=== PATIENT | male | born 1965 | race Caucasian/White ===

== ENCOUNTER 2020-02-08 16:52 | Emergency (ER) | payer OTHER ==
[2020-02-08] MEDS ORDERED: SODIUM CHLORIDE 0.9% (FLUSH) 10 ML SYG IV PRN (16:55)
--- NOTE | 2020-02-08 18:01 | ED.PDOC ---
History of Present Illness - General Chief Complaint: Cardiovascular Problem Stated Complaint: A [employer] ACTING UP Time Seen by Provider: 02/08/20 16:55 Source: patient, RN notes reviewed, Vital Signs reviewed Exam Limitations: no limitations - History of Present Illness Initial Comments: Patient is a 54-year-old white male who presents with complaints of shortness of breath and palpitations. Patient was seen by his park guide yesterday who gave him a "clean bill of health". Patient has a history of atrial fibrillation. Patient is supposed to be started on Eliquis, [facility] patient denies any chest pain. Timing/Duration: 1-3 hours Severity: moderate Improving Factors: nothing Worsening Factors: nothing Associated Symptoms: malaise, shortness of breath Allergies/Adverse Reactions: Allergies NO KNOWN ALLERGY Allergy (Verified 02/08/20 17:08) Home Medications: Ambulatory Orders Albuterol Inhaler [Ventolin Hfa Inhaler] 1 puff INH PRN PRN 02/08/20 Aspirin (Buffered) 325 mg [Bufferin 325 mg] 1 ea PO QD 02/08/20 Lovastatin 20 mg PO 02/08/20 Review of Systems - Review of Systems Constitutional: States: see HPI, malaise. Denies: chills, fever, weakness EENTM: States: no symptoms reported. Denies: eye pain, blurred vision, double vision Respiratory: States: see HPI, orthopnea, short of breath. Denies: stridor, wheezing Cardiology: States: see HPI, palpitations. Denies: chest pain, syncope Gastrointestinal/Abdominal: States: no symptoms reported. Denies: abdominal pain, nausea, vomiting Genitourinary: States: no symptoms reported. Denies: dysuria, frequency Musculoskeletal: States: no symptoms reported. Denies: back pain, neck pain Skin: States: no symptoms reported. Denies: change in color, rash Neurological: States: see HPI, weakness. Denies: headache, numbness, paresthesia, tremors Endocrine: States: no symptoms reported Hematologic/Lymphatic: States: no symptoms reported All other Systems: No Change from Baseline Past Medical History (General) - Patient Medical History Hx Seizures: No Hx Stroke: No Hx Dementia: No Hx Asthma: Yes Hx Cardiac Disorders: Yes Hx Congestive Heart Failure: No Hx Pacemaker: No Hx Hypertension: Yes Hx Thyroid Disease: No Hx Diabetes: No Hx Gastroesophageal Reflux: No Hx Renal Disease: No Hx Cancer: No Hx of HIV: No Hx Hepatitis C: No Hx MRSA: No - Vaccination History Hx Tetanus, Diphtheria Vaccination: No Hx Influenza Vaccination: No Hx Pneumococcal Vaccination: No Immunizations Up to Date: No - Social History Hx Tobacco Use: Yes Hx Chewing Tobacco Use: Yes Hx Alcohol Use: Yes - OCC Hx Substance Use: No Hx Substance Use Treatment: No Hx Depression: No Family Medical History - Family History Mother Family History: Unknown Living Status: Physical Exam - Physical Exam General Appearance: Alert, Anxious, Restless, Well Developed, Well Groomed, Well Hydrated, Well Nourished Eye Exam: bilateral normal Ears, Nose, Throat: hearing grossly normal, normal ENT inspection Neck: non-tender, full range of motion, supple Respiratory: chest non-tender, lungs clear, normal breath sounds, no respiratory distress, no accessory muscle use Cardiovascular/Chest: normal peripheral pulses, no edema, no gallop, no murmur, tachycardia, irregularly irregular Peripheral Pulses: radial,right: 2+, radial,left: 2+ Gastrointestinal/Abdominal: normal bowel sounds, non tender, soft Back Exam: normal inspection, no CVA tenderness, no vertebral tenderness Extremity: normal range of motion, non-tender, normal inspection 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 fib with RVR, acute VT, unstable angina, atrial flutter among others. 02/08/20 19:25 Patient's atrial flutter converted to sinus rhythm after Cardizem IV. Patient's chest pain resolved. Labs are essentially negative EKG concerning for ischemia. Patient has been accepted by his cardiology group for transfer to [facility]. Patient was accepted emergency department to emergency department by . Pt is cp free at this time. I discussed this plan of care with the patient he voices understanding and agreement with the plan of care. Luisito Otero M.D. #[id number] - Results/Orders Results/Orders: 02/08/20 16:55 IV Care:Saline Lock per Protoc QSHIFT Telemetry ONCE Sodium Chloride 0.9% (Flush) [Saline Flush Syringe] 3 ml IV PRN PRN Chest,1 View [RAD] Stat URINALYSIS Stat 02/08/20 17:00 EKG STAT 02/09/20 09:00 Pulse Ox Daily Laboratory Results - last 24 hr 02/08/20 17:05 WBC 9.5 RBC 5.22 Hgb 16.4 Hct 47.0 MCV 90.0 MCH 31.4 H MCHC 35.0 RDW 12.6 Plt Count 188 MPV 8.4 Absolute Neuts (auto) 5.20 Absolute Lymphs (auto) 2.60 Absolute Monos (auto) 1.20 H Absolute Eos (auto) 0.40 Absolute Basos (auto) 0.10 Neutrophils % 54.5 Lymphocytes % 27.1 Monocytes % 13.1 H Eosinophils % 4.6 Basophils % 0.7 PT 10.4 INR 1.05 PTT (SP) 24.2 Sodium 142 Potassium 4.0 Chloride 107 Carbon Dioxide 23 Anion Gap 16.0 BUN 18 Creatinine 1.25 BUN/Creatinine Ratio 14.4 Random Glucose 94 Serum Osmolality 284.8 Calcium 9.5 Magnesium 2.1 Total Bilirubin 1.0 Direct Bilirubin 0.1 Indirect Bilirubin 0.9 H AST 35 ALT 46 Alkaline Phosphatase 66 Creatine Kinase 417 H* CK-MB (CK-2) 7.1 H* CK-MB (CK-2) % 1.70 Troponin I 0.02 B-Natriuretic Peptide 89.6 Serum Total Protein 7.8 Albumin 5.3 EKG performed on 08 February 2020 at 1652 hrs.: Atrial flutter with variable AV block with PVCs at 140 bpm, left ventricular hypertrophy with repolarization abnormalities, abnormal EKG. No old comparison EKG available at this time. EKG performed 08 February 2020 at 1818 hrs.: Sinus rhythm with PACs at 81 bpm, left atrial enlargement, left ventricular hypertrophy, ST and T wave abnormalities laterally concerning for ischemia including inverted T waves, abnormal EKG. Vital Signs 02/08/20 02/08/20 02/08/20 16:58 16:59 17:09 Temperature 97.6 F Pulse Rate [ 140 H 134 H MONITOR] Respiratory 20 20 Rate Blood Pressure 143/98 [LA] O2 Sat by Pulse 97 97 Oximetry 02/08/20 02/08/20 02/08/20 17:12 18:00 18:17 Temperature Pulse Rate [ 86 84 90 MONITOR] Respiratory 18 18 Rate Blood Pressure 143/104 136/95 [LA] O2 Sat by Pulse 94 L Oximetry 02/08/20 19:08 Temperature 97.2 F L Pulse Rate [ 68 MONITOR] Respiratory 18 Rate Blood Pressure 140/99 [LA] O2 Sat by Pulse 100 Oximetry EXAM: XR Chest, 1 View CLINICAL HISTORY: The patient is 54 years old and is Male; dyspnea TECHNIQUE: Single view of the chest. COMPARISON: No relevant prior studies available. FINDINGS: Lungs: Unremarkable. No consolidation. Pleural space: Unremarkable. No pneumothorax. Heart: Unremarkable. No cardiomegaly. Mediastinum: Unremarkable. Bones/joints: No acute fracture visualized. Upper abdomen: No free air in the visualized upper abdomen. IMPRESSION: No acute cardiopulmonary process identified. Electronically signed by: Kathe Block MD 02/08/2020 7:28 - EKG/XRAY/CT CT Ordered: No CT Interpretation Call Back: No Departure - Departure Clinical Impression: Atrial flutter with rapid ventricular response, Abnormal EKG Chest pain Qualifiers: Chest pain type: unspecified Qualified Code(s): R07.9 - Chest pain, unspecified Time of Disposition: 19:29 Disposition: Transfer to Hospital Condition: Good Departure Forms: ED Discharge - Pt. Copy, Patient Portal Self Enrollment Instructions: DI for Chest Pain Diet: low fat, low cholesterol Activity: increase activity as tolerated Referrals: Scott Goff MD [Primary Care Provider] - 1-2 Weeks Home Medications: Ambulatory Orders Albuterol Inhaler [Ventolin Hfa Inhaler] 1 puff INH PRN PRN 02/08/20 Aspirin (Buffered) 325 mg [Bufferin 325 mg] 1 ea PO QD 02/08/20 Lovastatin 20 mg PO 02/08/20 Transfer to Outside Facility - Transfer Information Decision to Transfer Date: 02/08/20 Decision to Transfer Time: 18:45 Reason for Transfer: required specialist not available Accepting Provider:: Dr. Howard Accepting Facility: [facility]
[2020-02-08 19:09] VITALS: TEMP 97.2; O2SAT 100
--- NOTE | 2020-02-08 19:29 | RAD ---
EXAM: XR Chest, 1 View CLINICAL HISTORY: The patient is 54 years old and is Male; dyspnea TECHNIQUE: Single view of the chest. COMPARISON: No relevant prior studies available. FINDINGS: Lungs: Unremarkable. No consolidation. Pleural space: Unremarkable. No pneumothorax. Heart: Unremarkable. No cardiomegaly. Mediastinum: Unremarkable. Bones/joints: No acute fracture visualized. Upper abdomen: No free air in the visualized upper abdomen. IMPRESSION: No acute cardiopulmonary process identified. Electronically signed by: Kathe Block MD 02/08/2020 7:28 PM CDT
[2020-02-08] MEDS ORDERED: ENOXAPARIN SODIUM 100 MG/ML SYG SUBCU ONE (19:43)
[2020-02-08] MEDS ORDERED: ENOXAPARIN SODIUM 30 MG/0.3 ML SYG SUBCU ONE (19:43)
[2020-02-08 21:17] VITALS: BP 139/98
== END 2020-02-08 20:51 | disposition short-term general hospital (02) ==
LOC: ER 16:52
DX: I48.92 Unspecified atrial flutter (principal); R00.0 Tachycardia, unspecified; R94.31 Abnormal electrocardiogram [ECG] [EKG]; R07.9 Chest pain, unspecified; R06.02 Shortness of breath; I48.91 Unspecified atrial fibrillation; J45.909 Unspecified asthma, uncomplicated; I10 Essential (primary) hypertension; Z79.82 Long term (current) use of aspirin; Z79.899 Other long term (current) drug therapy; Z87.891 Personal history of nicotine dependence
CPT/HCPCS: 36415; 71045; 80048; 80076; 82550; 82553; 83880; 84484; 85025; 85610; 85730; 93005; 94760; J1650